=== PATIENT | male | born 1955 | race Caucasian/White ===

== ENCOUNTER → 2016-06-28 | Outpatient (CLI) | payer BC ==
[~2016-06-28] MED LIST: ADVAIR 250-501 EACH IH; ALBUTEROL17 GM INH; ALLEGRA PO; AMITRYPTYLINE PO; AMLODIPINE BESYL5 MG PO; ANDROGEL2.5 GM; BACITRACIN OP3.5 GM OD; BETAPACE PO; BETAPACE80 MG PO; CLARINEX5 MG PO; COUMADIN PO; COUMADIN7.5 MG PO; DEXILANT60 MG PO; DIAZEPAM PO; EFFEXOR XR PO; HYDROCODON-ACE1 EAC5 PO; IBUPROFEN800 MG PO; LAMICTAL PO; LANSOPRAZOLE30 M2; LEVAQUIN750 M1 PO; LORTAB 5/500 TA1 TA1 PO; LOVENOX SUBQ; LYRICA75 MG PO; NORCO 10/325 TA1 TAB PO; PERCOCET5/325 PO; PHENERGAN PO; PREDNISONE PO; PREDNISONE10 MG PO; PROAIR HFA8.5 GM IH; PROBIOTIC1 EAC4; SERZONE PO; SPIRIVA18 MCG INH; WELLBUTRIN SR150 MG PO; XANAX0.5 MG PO; ZITHROMAX PO
--- NOTE | ~2016-06-28 | MR154 ---
[facility]. [facility] A Service of [facility] & [facility] RADIOLOGY TEXT RESULTS PATIENT: PIA ACOSTA LOCATION: [facility] : 59 UNIT #: [id number] AGE: [address]: Belkis Blunt MD SEX: M ORDER DR: [id number] [address] [address] [id number] O MR#: [id number] Acc #: [id number] NAME: PIA ACOSTA : 1955 SEX: M STUDY DATE/TIME: 06/28/2016 13:39 UNIT: [facility] ROOM: STUDY DESCRIPTION: MR Pituitary Only WWo Cont Attending Physician: Belkis Blunt M.D. Referring Physician: Belkis Blunt M.D. Ordering Physician: Belkis Blunt M.D. Primary Care Physician: Harlan Felix M.D. MRI CENTER REPORT This report is preliminary unless electronic signature is present. EXAM MRI of the sella and the pituitary gland with and without contrast dated 06/28/2016. COMPARISON MRI brain with and without contrast dated 06/04/2011. HISTORY Postoperative pituitary tumor. There are increased TSH levels, hypogonadism. Surgery in 2006 and April 2015. FINDINGS Multisequence, multiplanar imaging of the sella and the pituitary gland were obtained with and without contrast. 20 mL of MultiHance was administered intravenously. There has been interval resection of the pituitary tumor. There is still some residual abnormal soft tissue noted in the left paramidline aspect of the sella extending superiorly to the suprasellar region. It abuts the pituitary stalk. The abnormal tissue measures about 1.6 x 1.3 x 1.2 cm. Previously the tumor measured 1.8 x 1.8 x 2.0 cm. There is significant decrease in overall volume. The remaining abnormal soft tissue in the left lateral aspect of the pituitary gland extending to the suprasellar region impinges on the left side of the optic chiasm and adjacent prechiasmatic optic nerve. Remaining visualized brain demonstrates nonspecific hyperintense T2 nonenhancing multiple lesions in the white matter. Motion artifact is noted despite repeats. Coronal postcontrast dynamic imaging of the pituitary gland was also obtained. IMPRESSION 1. There has been interval surgery between this study from 06/14/2011 and the current study. There is overall decrease in volume but there is abnormal soft tissue noted in the mid to left lateral aspect of STS. [facility] A Service of [facility] & [facility] RADIOLOGY TEXT RESULTS PATIENT: PIA ACOSTA LOCATION: [facility] : 59 UNIT #: [id number] AGE: [address]: Belkis Blunt MD SEX: M ORDER DR: the sella extending to the suprasellar region with impingement on the pituitary stalk and left side of the optic chiasm and adjacent left prechiasmatic optic nerve. It could represent postoperative granulation tissue and/or residual tumor. 2. No invasion of the cavernous sinuses. Dictated by... Tsering Zhang M.D. THIS IS AN ELECTRONICALLY VERIFIED REPORT Tsering Zhang M.D. at 06/29/2016 3:34 PM CPR/tmw TD: 06/29/2016 13:41 JOB #: [id number] MRI CENTER REPORT
== END | disposition home or self-care (01) ==
LOC: SMRI 09:55
DX: E23.0 Hypopituitarism (principal); H47.49 Disorders of optic chiasm in (due to) other disorders; Z98.890 Other specified postprocedural states
CPT/HCPCS: 70553; A9581

== ENCOUNTER 2016-12-20 17:02 | Emergency (ER) | payer BC ==
[~2016-12-20] VITALS: Ht 175.3 cm; Wt 120.7 kg
--- NOTE | ~2016-12-20 | CR72 ---
[facility] A Service of [facility] & [facility] RADIOLOGY TEXT RESULTS PATIENT: PIA ACOSTA LOCATION: [facility] : 59 UNIT #: [id number] AGE: [address]: Oscar Fritz MD SEX: M ORDER DR: [id number] [facility] [address] [place], [place] [address] [id number] MR#: [id number] Acc #: [id number] NAME: PIA ACOSTA : 1955 SEX: M STUDY DATE/TIME: 12/20/2016 21:01 UNIT: [facility] ROOM: STUDY DESCRIPTION: CR Chest Single View Portable Attending Physician: Oscar Fritz M.D. Ordering Physician: Oscar Fritz M.D. Primary Care Physician: Harlan Felix M.D. MEDICAL IMAGING REPORT This report is preliminary unless electronic signature is present EXAM Chest x-ray 12/20/2016 HISTORY 61-year-old male in the ED complaining of shortness of air, congestion, weakness and heart palpitations beginning earlier today. TECHNIQUE AP portable upright chest x-ray. FINDINGS Heart size and pulmonary vascularity are within normal limits. The lungs appear clear. No visible pulmonary infiltrate or pleural effusion. Benign calcified granuloma in the right upper lobe. No change since 12/05/2015. IMPRESSION No active disease. No change since 12/05/2015. Dictated by... Giancarlo Carrillo M.D. THIS IS AN ELECTRONICALLY VERIFIED REPORT Giancarlo Carrillo M.D. at 12/21/2016 9:47 AM VINICIOW/mansi TD: 12/21/2016 08:26 JOB #: [id number] MEDICAL IMAGING REPORT Page 1 of 1 COPY
--- NOTE | ~2016-12-20 | EKG ---
PATIENT: PIA ACOSTA UNIT #: [id number] Ventricular Rate: 66 BPM Atrial Rate: 66 BPM P-R Interval: 144 ms QRS Duration: 92 ms Q-T Interval: 418 ms QTC Calculation(Bezet): 438 ms P [place]: 65 degrees Calculated R [place]: 56 degrees Calculated T [place]: 68 degrees Diagnosis Line: Normal sinus rhythm Diagnosis Line: Normal ECG Diagnosis Line: When compared with ECG of 03-MAY-2015 21:18, Diagnosis Line: No significant change was found Diagnosis Line: Confirmed by MADDY MOSS MD ([id number]) on 12/20/2016 Diagnosis Line: 8:05:10 PM INTERPRETING MD: AJAY BRIONES
[2016-12-20 18:38] LABS: BASOPHIL# 0.1 X10e3 (0-0.3); BASOPHIL% 0.8 % (0-2.5); EOSINOPHIL# 0.2 X10e3 (0-0.7); EOSINOPHIL% 2.9 % (0.0-7.0); HEMATOCRIT 51.1 % (38.0-50.0); HEMOGLOBIN 17.2 gm/dL (13.0-16.0); LYMPHOCYTE% 23.4 % (17.0-45.0); MEAN CELL VOLUME 88.4 FL (83-96); MEAN CORPUSCULAR HEMOGLOBIN 29.7 PG (28-34); MEAN CORPUSCULAR HGB CONC 33.6 g/dL (30-36); MEAN PLATELET VOLUME 9.8 FL (6.5-11.5); MONOCYTE# 0.6 X10e3 (0-1.0); MONOCYTE% 6.9 % (3.0-12.0); NEUTROPHIL# 5.6 X10e3 (1.5-7.1); PLATELET COUNT 168 X10e3 (140-420); RED BLOOD COUNT 5.79 X10e (3.90-5.60); RED CELL DISTRIBUTION WIDTH 13.8 % (11.0-15.5); WHITE BLOOD COUNT 8.5 X10e3 (4.0-10.5)
[2016-12-20 18:53] LABS: DIFF IND NO
[2016-12-20 18:56] LABS: INR 2.4; PARTIAL THROMBOPLASTIN TIME 37.3 SECONDS (23.5-31.3); PROTHROMBIN TIME (PATIENT) 25.8 SECONDS (10.0-11.7)
[2016-12-20 19:03] LABS: ALBUMIN SERUM 4.2 g/dL (3.5-5.0); BILIRUBIN, DIRECT 0.2 mg/dL (0.0-0.2); BILIRUBIN,INDIRECT 0.6 mg/dL (0.0-0.9); BILIRUBIN,TOTAL 0.8 mg/dL (0.2-2.0); BUN/CREATININE RATIO 13.33; CALCIUM SERUM 9.6 mg/dL (8.4-10.2); CREATININE SERUM 1.2 mg/dL (0.6-1.4); GLOM FILT RATE Estimated 65.8 mL/min (>60); POTASSIUM 4.1 mmol/L (3.5-5.1); PROTEIN TOTAL SERUM 7.6 g/dL (6.0-8.3)
[2016-12-20 20:48] LABS: POC - CKMB <1.0 ng/mL (0.0-7.9); POC - TROPONIN <0.05 ng/mL (<=0.05)
[2016-12-20 21:11] LABS: POC - CKMB <1.0 ng/mL (0.0-7.9); POC - TROPONIN <0.05 ng/mL (<=0.05)
[2016-12-20 22:04] LABS: URINE SOURCE CLEAN CATCH
[2016-12-20 22:12] LABS: URINE APPEARANCE CLEAR; URINE BILIRUBIN NEG (NEG); URINE BLOOD NEG (NEG); URINE COLOR YELLOW; URINE GLUCOSE NEG (NEG); URINE KETONE NEG (NEG); URINE LEUKOCYTE ESTERASE NEG (NEG); URINE NITRATE NEG (NEG); URINE PH 5.5 (5-8); URINE PROTEIN NEG (NEG); URINE SPECIFIC GRAVITY 1.014 (1.003-1.035); URINE UROBILINOGEN 0.2 MG/DL (NEG)
[2016-12-20 22:16] LABS: CULTURE INDICATED? NO
== END 2016-12-20 22:08 | disposition home or self-care (01) ==
LOC: CED 17:02
PROVIDERS: Emergency Medicine
DX: R00.2 Palpitations (principal); I48.91 Unspecified atrial fibrillation; F32.9 Major depressive disorder, single episode, unspecified; F41.9 Anxiety disorder, unspecified; F17.200 Nicotine dependence, unspecified, uncomplicated
CPT/HCPCS: 36415; 71010; 80048; 80076; 81003; 82553; 84484; 85025; 85610; 85730; 93005; 99285